=== PATIENT | male | born 1960 | race Caucasian/White ===

== ENCOUNTER → 2018-08-07 | Outpatient (CLI) | payer OTHER ==
--- NOTE | 2018-08-07 18:54 | CT ---
EXAMINATION TYPE: CT chest wo con DATE OF EXAM: 08/07/2018 COMPARISON: None HISTORY: Restrictive lung disease. Pt indicated he also had trauma to his chest about 6 years ago, wh ich caused some breathing issues, possible fracture of sternum. CT DLP: 245 mGycm. Automated Exposure Control for Dose Reduction was Utilized. TECHNIQUE: CT scan of the thorax is performed without IV contrast. FINDINGS: LUNGS: The lungs are grossly clear. There is no pleural effusion or pneumothorax seen. The tracheo bronchial tree is patent. Vague density measuring 7 mm left upper lobe is likely postinflammatory. 2 mm subpleural nodule anterior segment left upper lobe. Groundglass changes posteriorly likely related to dependent atelectasis. Within the anterior segment of the right upper lobe there is a 4 mm oral s ubpleural nodule. 6 mm nodule at the left lung base and 4 mm nodule at the right lung base there is n o significant interlobular septal thickening. There is evidence of basilar bronchiectasis. MEDIASTINUM: Lack of IV contrast is noted to limit evaluation for mediastinal and especially hilar ad enopathy. There are no definitive greater than 1 cm hilar or mediastinal lymph nodes. No cardiomega ly or pericardial effusion is seen. OTHER: No additional significant abnormality is seen. IMPRESSION: 1. There is no evidence of interstitial lung disease. 2. There is mild basilar bronchiectasis. 3. There are multiple 7 mm less pulmonary nodules too small to accurately characterize. Recommend a s tandard CT scan of the chest with contrast on a 3 month basis to confirm stability given the lack of any previous exams.
== END ==
LOC: RADCTMAIN 16:27
PROVIDERS: ATTEND Internal Medicine
DX: J47.9 Bronchiectasis, uncomplicated (principal); R91.8 Other nonspecific abnormal finding of lung field
CPT/HCPCS: 71250

== ENCOUNTER 2018-08-11 10:15 | Day surgery (SDC) | payer OTHER ==
[2018-08-08 08:53] VITALS: BMI 28.3
[~2018-08-11 10:15] MED LIST: LACTATED RINGERS 1,000 ML IV SCH; LIDOCAINE 1% 20 ML VIAL (10MG/ML) FOR IV START INTRADERMA PRN
[2018-08-11 10:36] VITALS: RESP 16; TEMP 97.9
[2018-08-11] MEDS ORDERED: LIDOCAINE 1% INJ 10MG/ML (20 ML MDV) ONE (10:45)
[2018-08-11] MEDS ORDERED: fentaNYL (PF) 50 MCG/ML 2 ML AMP ONE (10:45)
[2018-08-11] MEDS ORDERED: MIDAZOLAM 2 MG/2 ML VIAL ONE (10:45)
[2018-08-11] MEDS ORDERED: PROPOFOL 10 MG/ML 20 ML VIAL IV ONE (10:45)
--- NOTE | 2018-08-11 11:13 | P.PCN ---
Date of Procedure: 08/11/18 Procedure(s) Performed: Procedure: Esophagogastroduodenoscopy and biopsy. Preoperative diagnosis: Intermittent solid food dysphagia. Postoperative diagnosis: 1. Small sliding hiatal hernia with low-grade distal esophagitis but no obvious strictures or Ruvalcaba's esophagus. 2. Mild antral gastritis. 3. Biopsies obtained from the duodenum, antrum and esophagus. Preparation and sedation: Was provided by anesthesia. Brief clinical history: The patient is a 58-year-old male who was pain experiencing intermittent dysphagia, mostly to beef, over the last 6 years or so. Reports occasional heartburn for which he takes antacids. He was tried on PPI in the past and he didn't think it made the difference. No weight loss or other alarm symptoms. This evaluation is to assess for complicated reflux disease or other pathology. Procedure: With the patient on his left lateral decubitus position and after informed consent and adequate sedation, I passed the [employer] GI FH 190 video upper endoscope through the cricopharyngeus down the esophagus. GE junction was around 38 cm from the incisors and there was a small sliding hiatal hernia. The distal esophagus showed a very small erosion terminating at the GE junction but no ulcers, Ruvalcaba's esophagus or any obvious strictures. The endoscope was then passed into the stomach which was insufflated with air and inspected in detail including the retroflex view in the cardia. There was some mottling and erythema in the antrum but no ulcers or erosions. Pyloric channel , duodenal bulb, post bulbar area and descending duodenum appeared within normal limits. Because of his symptoms, I obtained biopsies from the duodenum, antrum and esophagus then the endoscope was withdrawn. The patient tolerated the procedure well. Plan: The patient was reassured. Will await biopsy results. Consideration can be given for further workup including barium swallow and motility studies if he continues to be symptomatic especially if there is nutritional compromise. I will keep you updated on his progress.
[2018-08-11 11:23] VITALS: BP 126/83; PULSE 76
== END 2018-08-11 11:40 | disposition home or self-care (01) ==
LOC: ORWHC2ENDO 10:15
DX: K29.50 Unspecified chronic gastritis without bleeding (principal); K44.9 Diaphragmatic hernia without obstruction or gangrene; K21.0 Gastro-esophageal reflux disease with esophagitis; Z79.899 Other long term (current) drug therapy
CPT/HCPCS: 88305; 43239; J2250; J2001; J3010; J2704

== ENCOUNTER → 2019-03-25 | Outpatient (CLI) | payer OTHER ==
--- NOTE | 2019-03-26 07:53 | CT ---
EXAMINATION TYPE: CT chest w con DATE OF EXAM: 03/25/2019 COMPARISON: Chest CT high resolution August 07, 2018. HISTORY: Follow up for lung nodule. CT DLP: 412.2 mGycm. Automated Exposure Control for Dose Reduction was Utilized. TECHNIQUE: CT scan of the thorax is performed following with IV Contrast, patient injected with 100m l mL of Isovue 300. FINDINGS: LUNGS: Correlating to prior exam there is scarlike opacity left upper lobe measuring 8 x 8 mm axial i mage 16 accounting for technical differences is not significantly changed from prior study. Prior exa m was not ideal for evaluating subcentimeter nodules due to technique. There is stable 5 mm groundgla ss nodule posterior left lung base axial image 46. Smaller nodules and nodular opacities are redemons trated without interval enlargement. No new greater than 4 mm nodules or masses are present. No pleur al effusion or pneumothorax. Tracheobronchial tree is patent. MEDIASTINUM: There are no greater than 1 cm hilar or mediastinal lymph nodes. No cardiomegaly or p ericardial effusion is seen. Mild coronary artery calcification is seen which is noted marker for und erlying coronary artery disease. OTHER: Mild multilevel spurring in the thoracic spine. IMPRESSION: Overall stable findings from prior study suggest postinflammatory etiology. No new or enl arging nodules are present.
== END | disposition home or self-care (01) ==
LOC: RADCTMAIN 17:19
PROVIDERS: ATTEND Internal Medicine
DX: R91.1 Solitary pulmonary nodule (principal)
CPT/HCPCS: 71260; Q9967

== ENCOUNTER → 2020-04-12 | Outpatient (CLI) | payer OTHER ==
[2020-04-12 10:55] LABS: Basophils # (A) 0.1 k/uL (0-0.2); Basophils % (A) 1 %; Eosinophils # (A) 0.1 k/uL (0-0.7); Eosinophils % (A) 2 %; HGB 15.3 gm/dL (13.0-17.5); Lymphocytes # (A) 1.5 k/uL (1.0-4.8); Lymphocytes % (A) 33 %; MCH 32.4 pg (25.0-35.0); MCHC 33.3 g/dL (31.0-37.0); MCV 97.4 fL (80.0-100.0); Mean Platelet Volume 6.8; Monocytes # (A) 0.3 k/uL (0-1.0); Monocytes % (A) 7 %; Neutrophils # (A) 2.4 k/uL (1.3-7.7); Neutrophils % (A) 55 %; Platelet Count 246 k/uL (150-450); RBC 4.73 m/uL (4.30-5.90); RDW 12.4 % (11.5-15.5); WBC 4.4 k/uL (3.8-10.6)
[2020-04-12 18:56] LABS: African American GFR (CKD) 85.3 (60.0-200.0); Albumin 4.4 g/dL (3.80-4.90); Albumin/Globulin Ratio 2.44 (1.60-3.17); Anion Gap 7.7 mmol/L (4.00-12.00); BUN/Creat Ratio 13.64 Ratio (12.00-20.00); Calcium 8.9 mg/dL (8.7-10.3); Carbon Dioxide 27.3 mmol/L (21.6-31.8); Chol/HDL Ratio 3.89; Globulin 1.8 g/dL (1.6-3.3); LDL Cholesterol,Calculated 121.4 mg/dL (0.0-131.0); Non-African American GFR(CKD) 73.6 (60.0-200.0); Potassium 4.4 mmol/L (3.5-5.5); Total Protein 6.2 g/dL (6.2-8.2); VLDL Calculation 14.6 mg/dL (5.00-40.00)
[2020-04-12 19:05] LABS: T4, Free (Free Thyroxine) 1.3 ng/dL (0.80-1.80)
[2020-04-12 19:07] LABS: Prostate Specific Antigen 1.6 ng/mL (0.0-3.5)
== END | disposition home or self-care (01) ==
LOC: LABWHC1 08:51
PROVIDERS: ATTEND Internal Medicine
DX: Z00.00 Encounter for general adult medical examination without abnormal findings (principal); Z12.5 Encounter for screening for malignant neoplasm of prostate
CPT/HCPCS: 36415; 80053; 80061; 84153; 84439; 84443; 85025

== ENCOUNTER → 2021-09-06 | Outpatient (CLI) | payer OTHER ==
--- NOTE | 2021-09-06 12:46 | CT ---
EXAMINATION TYPE: CT chest w con DATE OF EXAM: 09/06/2021 COMPARISON: 03/25/2019, 08/07/2018 HISTORY: 61-year-old male Lung nodule follow up. TECHNIQUE: Contiguous axial scanning of the chest after the administration of 100 mL of Isovue M300. Coronal/sagittal reconstructions performed. CT DLP: 334.9mGycm. Automatic exposure control utilized for a dose reduction. FINDINGS: Heart normal size without pericardial effusion. Stable aneurysm aortic root 4.2 cm and ascending aorta at 4.1 cm. Bovine configuration to the aortic arch. No thoracic lymphadenopathy by CT size criteria. Mild dependent atelectasis. Additional strandy bibasilar atelectasis. Minimal patch of groundglass density posterior right midlung, axial image 23. Minimal patch of groundglass density anterior left upper lobe, axial image 17. Otherwise, no consolidation or pleural effusion. Stable 5 to 6 mm posterior left basilar pulmonary nodule. Visualized upper abdomen shows no gross abnormality. Bones: Scattered endplate Schmorl's nodes mid and lower thoracic spine. IMPRESSION: 1. Minimal patch of groundglass density, one in the posterior right mid lung and one in the anterior left upper lobe. Finding suggest small infectious/inflammatory foci. 2. Stable 5 to 6 mm left basilar pulmonary nodule compatible with a benign etiology. 3. Prominent strandy basilar areas of atelectasis and mild dependent atelectasis. 4. Stable mild aneurysmal aortic root at 4.2 cm and ascending aorta at 4.1 cm.
== END | disposition home or self-care (01) ==
LOC: RADCTMAIN 10:49
PROVIDERS: ATTEND Internal Medicine
DX: R91.1 Solitary pulmonary nodule (principal); J98.11 Atelectasis; I71.2 Thoracic aortic aneurysm, without rupture; R91.8 Other nonspecific abnormal finding of lung field
CPT/HCPCS: 71260; Q9967

== ENCOUNTER → 2024-01-13 | Outpatient (CLI) | payer OTHER ==
--- NOTE | 2024-01-13 17:38 | CT ---
EXAMINATION TYPE: CT angio chest CT DLP: 858.7 mGycm, Automated exposure control for dose reduction was used. DATE OF EXAM: 01/13/2024 4:47 PM COMPARISON: Chest radiograph from same day. Multiple CTs of the chest with most recent on . 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 FINDINGS: Lungs/Pleura: No evidence of focal consolidation, pleural effusion or pneumothorax. No new or enlargi ng pulmonary nodules identified. Right intrafissural lymph node left upper lung ground glass opacity measuring 8 mm. Airway: Large airways are patent. Heart: Heart is within normal limits for size. Vasculature: Ascending thoracic aorta ectasia up to 41 mm, previously 42 mm. No evidence for intramur al hematoma on noncontrast imaging. No evidence of intimal flap to suggest dissection. No aneurysm id entified. Scattered atherosclerotic disease. Mediastinum: No gross evidence of adenopathy. Musculoskeletal: Mild degenerative disc disease changes are present throughout the thoracolumbar spin e. Soft Tissues/lymph nodes: Unremarkable. Lower neck: No significant findings. Upper Abdomen: No significant findings. IMPRESSION: 1. Stable ectasia of the ascending thoracic aorta up to 41 mm on today's exam. No evidence for disse ction occlusion or aneurysm. 2. Similar left upper lobe groundglass opacity measuring 8 mm on today's exam.
== END | disposition home or self-care (01) ==
LOC: RADCTMAIN 15:57
PROVIDERS: ATTEND Internal Medicine
DX: I77.810 Thoracic aortic ectasia (principal)
CPT/HCPCS: 71275; Q9967